=== PATIENT | female | born 1990 | race Caucasian/White ===

== ENCOUNTER 2020-09-21 20:30 | Emergency (ER) | payer OTHER ==
[~2020-09-21 20:30] MED LIST: MELOXICAM15 MG PO; NAPROXEN500 MG PO; RISPERDAL 1MG TA1 MG PO; VENTOLIN HFA18 GM INH; VIBRAMYCIN100 MG PO; ZOFRAN8 MG PO
[2020-09-21 22:34] LABS: BASOPHIL 0.6 % (0-2); EOSINOPHIL 4.2 % (0-5); HCT 42.9 % (37.0-47.0); HGB 13.7 g/dl (12.5-16.0); LYMPHOCYTE 25.2 % (15-48); MCHC 31.9 g/dL (32.0-36.0); MCV 87.6 fL (78.0-100.0); MONOCYTE 7.8 % (0-12); MPV 9.6 fL (6.0-9.5); NEUTROPHIL 61.9 % (41-80); NRBC 0; PLT 378 K/uL (150-400); RDW 13.8 % (11.5-14.0); WBC 10.1 K/uL (4.0-10.5)
[2020-09-21 22:36] LABS: BILIRUBIN NEGATIVE (NEGATIVE); BLOOD NEGATIVE Ery/uL (NEGATIVE); CLARITY CLEAR (CLEAR); COLOR YELLOW (YELLOW); GLUCOSE (U) NORMAL (NORMAL); LEUKOCYTES NEGATIVE Leu/uL (NEGATIVE); NITRITE NEGATIVE (NEGATIVE); PROTEIN NEGATIVE (NEGATIVE); SPECIFIC GRAVITY 1.025 (1.001-1.030); UROBILINOGEN 0.2 mg/dL (0.2-1.0)
[2020-09-21 22:39] LABS: AMPHETAMINES POSITIVE (NEGATIVE); BARBITURATES NEGATIVE (NEGATIVE); ECSTASY (MDMA) NEGATIVE (NEGATIVE); MARIJUANA (THC) NEGATIVE (NEGATIVE); METHADONE NEGATIVE (NEGATIVE); OPIATES NEGATIVE (NEGATIVE); OXYCODONE NEGATIVE (NEGATIVE)
[2020-09-21 22:57] LABS: IRON % SATURATION 22.5 %SAT (20-50)
[2020-09-21 23:05] LABS: PRO-BNP 37 pg/mL (<125)
[2020-09-21 23:16] LABS: ALBUMIN 3.6 g/dL (3.4-5.0); ALKALINE PHOSHATASE 72 U/L (46-116); ALT 20 U/L (14-59); AST 18 U/L (15-37); BILIRUBIN - TOTAL 0.2 mg/dL (0.2-1.0); BUN 17 mg/dL (7-18); BUN/CREAT RATIO (CALC) 20.2 RATIO; C-REACTIVE PROTEIN <0.20 mg/dL (<=0.90); CHLORIDE 104 mmol/L (98-107); CO2 (BICARBONATE) 28 mmol/L (21-32); CREATININE 0.84 mg/dL (0.51-0.95); GLOBULIN (CALCULATION) 3.9 g/dL; GLUCOSE 110 mg/dL (74-106); LIPASE 85 U/L (73-393); MAGNESIUM 2.6 mg/dL (1.8-2.4); POTASSIUM 3.9 mmol/L (3.5-5.1); TOTAL PROTEIN 7.5 g/dL (6.4-8.2)
[2020-09-22] MEDS ORDERED: BENTYL10 MG PO (01:26)
[2020-09-22] MEDS ORDERED: VIBRAMYCIN100 MG PO (01:26)
[2020-09-22] MEDS ORDERED: METRONIDAZOLE500 MG PO (01:26)
[2020-09-22] MEDS ORDERED: PHENERGAN25 M1 PO (01:26)
[2020-09-23 22:06] LABS: CHLAMYDIA TRACHOMATIS, NAA Negative (Negative); NEISSERIA GONORRHOEAE, NAA Negative (Negative)
== END 2020-09-22 01:36 | disposition home or self-care (01) ==
LOC: FER 20:30
PROVIDERS: Emergency Medicine
DX: R10.84 Generalized abdominal pain (principal); R11.2 Nausea with vomiting, unspecified; R19.7 Diarrhea, unspecified; I10 Essential (primary) hypertension; F17.210 Nicotine dependence, cigarettes, uncomplicated; Z88.1 Allergy status to other antibiotic agents; Z87.448 Personal history of other diseases of urinary system
CPT/HCPCS: 36415; 80053; 80305; 81003; 82728; 83540; 83550; 83690; 83735; 83880; 84145; 84484; 85025; 86140; 87491; 87591; 93005; Q9967

== ENCOUNTER 2021-01-05 14:38 | Emergency (ER) | payer OTHER ==
[~2021-01-05 14:38] MED LIST changes: +BENTYL10 MG PO; +METRONIDAZOLE500 MG PO; +PHENERGAN25 M1 PO
== END 2021-01-05 17:22 | disposition home or self-care (01) ==
LOC: FER 14:38
DX: S83.91XA Sprain of unspecified site of right knee, initial encounter (principal); Z88.1 Allergy status to other antibiotic agents; W19.XXXA Unspecified fall, initial encounter; X50.1XXA Overexertion from prolonged static or awkward postures, initial encounter; Y92.9 Unspecified place or not applicable
CPT/HCPCS: 73564

== ENCOUNTER 2021-09-03 22:34 | Emergency (ER) | payer OTHER | END 2021-09-03 23:34 | disposition CLEPR | LOC: FER 22:34 | DX: R51.9 Headache, unspecified (principal); F17.200 Nicotine dependence, unspecified, uncomplicated; Z02.79 Encounter for issue of other medical certificate; Z88.1 Allergy status to other antibiotic agents; Z91.011 Allergy to milk products | CPT/HCPCS: 99283 ==

== ENCOUNTER 2021-09-19 00:55 | Emergency (ER) | payer OTHER ==
[2021-09-19] MEDS ORDERED: NORCO 5-325 TA1 EACH PO (05:21)
[2021-09-19] MEDS ORDERED: CLINDAMYCIN 15150 MG PO (05:21)
[2021-09-19] MEDS ORDERED: IBUPROFEN800 MG PO (05:21)
[2021-09-19] MEDS ORDERED: ONDANSETRON ODT4 MG SL (05:21)
[2021-09-19 05:40] LABS: INFLUENZA A NAA NEGATIVE (NEGATIVE)
[2021-09-19 05:42] LABS: CORONAVIRUS 2019 SARS-COV-2 POSITIVE (NEGATIVE)
== END 2021-09-19 05:55 | disposition home or self-care (01) ==
LOC: FER 00:55
PROVIDERS: Emergency Medicine Emergency Medical Services
DX: H92.01 Otalgia, right ear (principal); K03.81 Cracked tooth; U07.1 COVID-19; F17.200 Nicotine dependence, unspecified, uncomplicated; Z88.1 Allergy status to other antibiotic agents
CPT/HCPCS: 96372; 99283; J1100; J1885; Q0163; U0002